=== PATIENT | female | born 1970 | race Caucasian/White ===

== ENCOUNTER 2017-07-22 11:57 | Day surgery (SDC) | payer OTHER ==
[~2017-07-22 11:57] MED LIST: Bupivacaine 0.5% 50 ML MDV ONE; Lidocaine 1% with EPINEPHrine 1:100,000 50 ML MDV ONE; Midazolam 1 MG/ML 2 ML SDV ONE; Propofol 200 MG/20 ML SDV ONE; Sodium Chloride 0.9% 1,000 ML IV SCH; ceFAZolin 2 GM in Premix Bag 1 BAG IV ONE; fentaNYL 100 MCG/2 ML SDV ONE
[2017-07-22] MEDS ORDERED: fentaNYL 100 MCG/2 ML SDV ONE (12:47)
[2017-07-22] MEDS ORDERED: Midazolam 1 MG/ML 2 ML SDV ONE (12:47)
[2017-07-22] MEDS ORDERED: Propofol 200 MG/20 ML SDV ONE ×2 (12:47→15:01)
--- NOTE | 2017-07-23 10:42 | US ---
Ultrasound guidance was provided during biopsy of a left breast mass.
--- NOTE | 2017-07-30 14:55 | OR ---
DATE OF PROCEDURE: 07/22/2017 PROCEDURE: Left breast ultrasound-guided breast biopsy. COMPLICATIONS: None. COMPUTER SCIENCE INSTRUCTOR: None. INDICATIONS: This is a pleasant 47-year-old female with a BI-RADS 5 breast lesion at approximately the 2 o'clock position. PREOPERATIVE DIAGNOSIS: Concern for breast malignancy. POSTOPERATIVE DIAGNOSIS: Concern for breast malignancy. DESCRIPTION OF PROCEDURE: The patient was placed in supine position. The left breast was prepped and draped. Using 11 megahertz ultrasound probe, the lesion was identified. This would be biopsied using a 14-gauge core biopsy gun. This was done with a single tariq in the skin after anesthetized with lidocaine. A total of three passes were performed in three separate locations with the mass. After this, a single clip was placed within the lesion itself. There was also a concern about the axilla, as far as a 1.9 cm lesion. This was examined in multiple planes on the ultrasound, was found musculoskeletal in nature. This was also reviewed with the radiologist, who concurred with this diagnosis. The patient tolerated the procedure well. Leonardo Keith MD /[id number]
== END 2017-07-22 16:15 | disposition home or self-care (01) ==
LOC: JP.SDS 11:57
PROVIDERS: ATTEND Surgery
DX: C50.912 Malignant neoplasm of unspecified site of left female breast (principal); E03.9 Hypothyroidism, unspecified; E66.9 Obesity, unspecified; Z79.899 Other long term (current) drug therapy; Z98.890 Other specified postprocedural states; Z68.30 Body mass index [BMI] 30.0-30.9, adult
CPT/HCPCS: 19083; 76998; 88305; 88341; 88342; 88360; J0690; J2250; J2704; J3010; J7040